=== PATIENT | female | born 1970 | race Asian ===

== ENCOUNTER 2023-11-09 11:23 | Emergency (ER) | payer OTHER, SELFPAY ==
[2023-11-09 11:35] VITALS: BP 137/79; PULSE 65; RESP 10; TEMP 37.1; O2SAT 99
--- NOTE | 2023-11-09 12:15 | DI.RAD_ITS ---
Exam(s) XR KNEE LT 3V AP,LAT,JEN EXAM: XR KNEE LT 3V AP,LAT,JEN CLINICAL HISTORY: fall- medial knee pain. TECHNIQUE: 2D digital imaging was performed. Three views. COMPARISON: No exams were available for comparison FINDINGS: BONES: No acute fracture is present. No bony destructive lesion is seen. JOINTS: The knee is normally aligned. No joint effusion is seen. SOFT TISSUE: Normal. IMPRESSION: Normal radiographs of the left knee. DATA REPOSITORY: RADIATION DOSE DELIVERED:
--- NOTE | 2023-11-09 13:08 | ED.GENADUL_ITS ---
Discharge Plan Disposition Patient Disposition: Home Discharge Details Clinical Impression: Knee MCL sprain Primary Care Provider: Unknown,Unknown ED Provider: Rui Jameson Home Meds and New Rx's Prescriptions: Continued tamoxifen 20 mg tablet 20 mg PO DAILY ibuprofen [IBU] 600 mg tablet 600 mg PO ONCE Discharge Instructions Instructions: Using Cold for Pain, Knee Sprain ED Additional Instructions: You may continue to use [id number] pain medication as needed for discomfort and use crutches for the next 2 to 3 days then slowly advance activity as tolerated but continue to wear the hinged knee brace until seen and cleared by orthopedics when you return home. If you have any new or significant worsening of symptoms feel free to return the emergency department for reassessment otherwise follow-up with orthopedic provider in the next 1 to 2 weeks Referrals: Unknown,Unknown [Primary Care Provider] - ([facility]) Discharge Data Discharge Date/Time-TO BE ENTERED AT DEPARTURE: 11/09/23 13:37 HPI General Mode of arrival: wheelchair . Date/Time Provider Initiated Documentation: 11/09/23 11:41 . Limitations to Documentation: no limitations . Information obtained by: patient, family and RN notes reviewed . History of Present Illness 53 year old F presents to the emergency department with the chief complaint of Left knee injury, described as moderate, and is localized to the left and lower extremity. Patient reports no radiation. Patient started experiencing this day(s) (1) and it has been constant. Immobilization improves symptom(s), Movement worsens symptoms . Patient notes no other symptoms.. Related Data Home Medications ?Medication ?Instructions ?Recorded ?Confirmed ibuprofen 600 mg tablet (IBU) 600 mg PO ONCE 11/09/23 11/09/23 tamoxifen 20 mg tablet 20 mg PO DAILY 11/09/23 11/09/23 Allergies Allergy/AdvReac Type Severity Reaction Status Date / Time No Known Allergies Allergy Unverified 11/09/23 11:39 General Stated Complaint: Orthopedic JANI: 4 Review of Systems Musculoskeletal Musculoskeletal: Reports as per HPI, Reports arthralgias, Reports joint swelling and Reports limited range of motion Integumentary/Breasts Skin/Breast: Denies unusual bruising and Denies wounds Exam Const General: cooperative, no acute distress and not ill appearing Orientation: alert, awake and oriented x3 HENMT Mouth: moist mucous membranes Resp Effort & Inspection: normal respiratory effort, able to speak in complete sentences and no respiratory distress Skin General skin exam: no rashes or lesions noted Neuro General: patient alert, patient awake, patient oriented x3, moves all extremities and no focal motor deficits Sensory Exam: no sensory deficits noted Extrem General: normal exam except as noted Left lower extremity: knee Details: tenderness Location: of the tibial tuberosity and of the medial joint line, swelling and knee ligament exam abnormal Details: valgus stress test Details: both pain and laxity noted; no ecchymosis and no crepitus Course Vital Signs Vital signs: Vital Signs Temperature 37.1 C 11/09/23 11:35 Pulse 65 11/09/23 11:35 Respiratory Rate 10 L 11/09/23 11:35 Blood Pressure 137/79 11/09/23 11:35 Pulse Oximetry 99 11/09/23 11:35 Temperature 37.1 C 11/09/23 11:35 Temperature Source Skin 11/09/23 11:35 Pulse 65 11/09/23 11:35 Respiratory Rate 10 L 11/09/23 11:35 Respiratory Effort Normal, Non-Labored 11/09/23 12:52 Blood Pressure 137/79 11/09/23 11:35 Blood Pressure Position Sitting 11/09/23 11:35 Pulse Oximetry 99 11/09/23 11:35 Oxygen Delivery Method Room Air 11/09/23 11:35 Oxygen Flow Rate 0 11/09/23 11:35 Pain Level 7 11/09/23 11:35 Medical Decision Making Patient presenting to the emergency department for chief complaint of left knee injury. Yesterday she reports a minor mechanical fall but she felt a pop or cracking noise to the medial aspect of her knee. Since then she has had difficulty bearing weight and with movement of the knee. Patient denies any other injury or trauma. Physical exam shows medial ligament laxity and pain, tenderness to palpation of the medial joint line. Patient does have intact flexion and extension of the knee and most pain is elicited with again laxity testing of the medial ligament along with rotation. Exam is otherwise unremarkable. Will plan on performing radiological imaging to rule out acute fracture given that patient is having difficulty with weightbearing activities but suspect more MCL sprain Review of radiological imaging shows no acute findings. Patient placed in [facility] knee brace and recommended to use crutches for the next 2 to 3 days. Patient to follow-up with local orthopedist when she returns home for reassessment and further stabilization as needed after discussion of diagnosis and plan of care patient has no further needs, questions, or concerns and states clear understanding to return to the emergency department for any worsening symptoms. This documentation was generated using [employer] dictation system, please disregard any oddities of phrase or misspellings. Imaging Data Radiologic Study: Imaging: X-Ray Radiologist's impression: Exam(s) XR KNEE LT 3V AP,LAT,JEN EXAM: XR KNEE LT 3V AP,LAT,JEN CLINICAL HISTORY: fall- medial knee pain. TECHNIQUE: 2D digital imaging was performed. Three views. COMPARISON: No exams were available for comparison FINDINGS: BONES: No acute fracture is present. No bony destructive lesion is seen. JOINTS: The knee is normally aligned. No joint effusion is seen. SOFT TISSUE: Normal. IMPRESSION: Normal radiographs of the left knee Quality:SDOH Health Related Social Needs: No Data to Display PFSH All Active Problems (Updated 11/09/23 @ 13:17 by Rui Jameson NP) Knee MCL sprain (Acute) Social History Smoking/Tobacco Use Status: Never Smoking risk assessment performed?: Yes Alcohol Intake: current Alcohol Intake frequency: a few times a month Drug use: Never Substance use type: does not use PAWSS Have you Been Recently Intoxicated or Drunk Within the Last 30 days?: No Have you Ever Experienced Previous Episodes of Alcohol Withdrawal?: No Have you ever Experienced Withdrawal Seizures?: No Have you ever Experienced Delirium Tremens(DT)s?: No Have you ever undergone Alcohol Rehabilitation Treatment (i.e, inpt ot outpatient treatment programs)?: No Have you ever Experienced Blackouts?: No Have you ever Combined Alcohol with other Downers within the last 90 days?: No Have you ever Combined Alcohol with any other Substance of Abuse during the last 90 days?: No Positive Blood Alcohol level on Presentation? [PCS.BAL]: No Evidence of Increased Autonomic Activity (i.e. HR>120, tremor, sweating, agitation, nausea)?: No Result: 0
== END 2023-11-09 13:37 | disposition home or self-care (01) ==
LOC: ER 13:18
PROVIDERS: Emergency Provider Nurse Practitioner Family
DX: S83.412A Sprain of medial collateral ligament of left knee, initial encounter (principal); X58.XXXA Exposure to other specified factors, initial encounter
CPT/HCPCS: 73562; 99283